=== PATIENT | male | born 1970 | race African-American/Black ===

== ENCOUNTER 2017-02-10 13:11 | Emergency (ER) | payer OTHER ==
[~2017-02-10] VITALS: Ht 185.4 cm; Wt 88.5 kg
[2017-02-10] MEDS: Norco 7.5mg/325mg tab ORAL ONE (13:47)
--- NOTE | 2017-02-10 14:09 | Emergency Room Report ---
History of Present Illness General Chief Complaint: Lower Extremity Injury Source: Patient Present Illness HPI 46-year-old male presents emergency department complaining of 10 out of 10 in severity left ankle pain times one hour. Patient states that he fell from climbing a tree onto his leg. Patient denies hitting his head or loss of consciousness. Patient estimates that fall height was approximately 6 feet. he denies hip pain or low back pain. Patient reports swelling, tenderness and inability to bear weight. Pain is localized it does not radiate. He reports no relieving factors. Denies numbness tingling or loss of sensation or gross motor movements of the extremities, incontinence of bowel or bladder. Denies CP , Palpitations, LOC, AMS, dizziness, Changes in Vision, Sensation, paresthesias , or a sudden severe headache. Allergies: Coded Allergies: No Known Allergies (Unverified , 10/03/14) Patient History Past Medical History: see triage record Past Surgical History: none Pertinent Family History: none Reviewed Nursing Documentation: PMH: Agreed, PSxH: Agreed Nursing Documentation-PMH Past Medical History: No History, Except For History Of Psychiatric Problem: Yes Review of Systems All Other Systems: negative except mentioned in HPI Physical Exam Vital Signs Date Time Temp Pulse Resp B/P Pulse Ox O2 Delivery O2 Flow Rate FiO2 02/10/17 13:31 98.2 76 18 142/85 98 Room Air Sp02 EP Interpretation: reviewed, normal General Appearance: no apparent distress, alert, GCS 15, non-toxic Head: normocephalic, atraumatic Eyes: bilateral eye PERRL, bilateral eye normal inspection ENT: hearing grossly normal, normal pharynx, no angioedema, normal voice Neck: full range of motion, supple/symm/no masses Respiratory: chest non-tender, lungs clear, normal breath sounds, speaking full sentences Cardiovascular #1: regular rate, rhythm, no edema, normal capillary refill Musculoskeletal: back normal, gait/station normal, swelling - lateral left ankle, other - posterior tibialis pulses intact, tender - lateral left ankle Neurologic: alert, oriented x3, responsive, motor strength/tone normal, sensory intact, speech normal Psychiatric: judgement/insight normal, memory normal, mood/affect normal Skin: normal color, no rash, warm/dry, well hydrated Procedures Splinting Splinting : Consent: Verbal Location: left ankle Splint: poserior short - with stirrup Pre-Proc Neuro Vasc Exam: normal Post-Proc Neuro Vasc Exam: normal Patient Tolerated: Well Complications: None Medical Decision Making PA Attestation Dr. Blue is my supervising Physician whom patient management has been discussed with. Diagnostic Impression: Primary Impression: Fracture of left ankle Qualified Codes: S82.892A - Other fracture of left lower leg, initial encounter for closed fracture ER Course 46-year-old male presents emergency department complaining of 10 out of 10 in severity left ankle pain times one hour. Patient states that he fell from climbing a tree onto his leg. Patient denies hitting his head or loss of consciousness. Patient estimates that fall height was approximately 6 feet. he denies hip pain or low back pain. Patient reports swelling, tenderness and inability to bear weight. Pain is localized it does not radiate. He reports no relieving factors. Denies numbness tingling or loss of sensation or gross motor movements of the extremities, incontinence of bowel or bladder. Denies CP , Palpitations, LOC, AMS, dizziness, Changes in Vision, Sensation, paresthesias , or a sudden severe headache. Ddx considered but are not limited to Fracture, dislocation, contusion, Sprain/ Strain/Spasm, compartment syndrome. Vital signs: are WNL, pt. is afebrile H&PE are most consistent with musculoskeletal injury will perform imaging to r/ o fractures/dislocations. ORDERS: - X-ray Right ankle 3 views -Positive for multiple fractures of the distal tibia, and fibula , no Dislocation, or significant soft tissue injury, per preliminary read in ED by Dr. Blue - interpretation is scribed by PA. -- X-ray Right Foot 3 views -Positive for multiple fractures of the distal tibia, and fibula , no Dislocation, or significant soft tissue injury, per preliminary read in ED by Dr. Blue - interpretation is scribed by JULIA. ED INTERVENTIONS: - [place] PO - Short leg posterior with stirrup Splint applied by operating theatre technician. Pt. remains neurovascularly intact. - Pt. is provided with crutches -d/w pt. that this injury is most likely surgical and that he needs to follow up with call center specialist for evaluation. d/w pt. concerning symptoms that would indicate prompt return to the ED such as pain out of proportion, significant swelling, tenderness etc. DISCHARGE: At this time pt. is stable for d/c to home. Will provide printed patient care instructions, and any necessary prescriptions. Care plan and follow up instructions have been discussed with the patient prior to discharge. Last Vital Signs Date Time Temp Pulse Resp B/P Pulse Ox O2 Delivery O2 Flow Rate FiO2 02/10/17 13:31 98.2 76 18 142/85 98 Room Air Disposition: HOME, SELF-CARE Condition: Stable Scripts Hydrocodone Bit/Acetaminophen 5-325* (NORCO 5-325*) 1 Each Tablet 1 TAB ORAL Q6H Y for For Pain, #15 TAB 0 Refills Prov: Angelica Galaviz 02/10/17 Ibuprofen* (MOTRIN*) 600 Mg Tablet 600 MG ORAL THREE TIMES A DAY, #30 TAB 0 Refills Prov: Angelica Galaviz 02/10/17 Patient Instructions: Complex Ankle Fracture Additional Instructions: Take medications as directed. Follow up with a INSURANCE CLAIMS ANALYST in 3 days for surgical evaluation * * Return sooner to ED if new symptoms occur, or current symptoms become worse. Do not drink alcohol, drive, or operate heavy machinery while taking [place] as this may cause drowsiness. - Please note that this Emergency Department Report was dictated using [employer] paneler technology software, occasionally this can lead to erroneous entry secondary to interpretation by the dictation equipment. Angelica Galaviz Feb 10, 2017 14:09
[2017-02-10] MEDS ORDERED: IBUPROFEN600 MG ORAL (14:31)
[2017-02-10] MEDS ORDERED: NORCO 5-325 TA1 EACH ORAL (14:31)
[2017-02-10 15:06] VITALS: BP 0/0
--- NOTE | 2017-02-10 15:45 | Diagnostic Imaging Report ---
Indications: Fall from tree, left foot injury and pain Technique: 3 views left foot. Findings: Comparison: None No fracture, dislocation, joint space widening , surrounding soft tissue swelling/foreign body/gas, or other acute changes are identified. IMPRESSION: No evidence of acute injury to left foot.
== END 2017-02-10 15:09 | disposition home or self-care (01) ==
LOC: EDBD 13:11 → EMR 14:15
DX: S82.892A Other fracture of left lower leg, initial encounter for closed fracture (principal); W14.XXXA Fall from tree, initial encounter; Y92.89 Other specified places as the place of occurrence of the external cause
CPT/HCPCS: 29515; 99284